=== PATIENT | female | born 1990 | race Caucasian/White ===

== ENCOUNTER 2021-02-05 00:12 | Emergency (ER) | payer OTHER ==
[~2021-02-05] VITALS: Ht 172.7 cm; Wt 104.3 kg
[2021-02-05] MEDS ORDERED: ACETAMINOPHEN 325 MG TAB PO ONE (01:45)
[2021-02-05 01:54] LABS: Basophils # (auto) 0 10 ^3/uL (0-0.2); Basophils % (auto) 0.2 % (0.0-2.0); Eosinophils # (auto) 0 10 ^3/uL (0-0.8); Eosinophils % (auto) 0.1 % (0.0-7.0); Hematocrit 39.2 % (36.0-46.0); Hemoglobin 13.5 g/dL (12.2-16.2); Lymphocytes # (auto) 1.2 10 ^3/uL (0.4-5.4); Lymphocytes % (auto) 7.5 % (10.0-50.0); Mean Corpuscular Hgb Conc. 34.6 g/dL (32.0-36.0); Mean Corpuscular Volume 81.1 fL (80.0-100.0); Monocytes # (auto) 1.3 10 ^3/uL (0-1.3); Monocytes % (auto) 7.8 % (0.0-12.0); Neutrophils # (auto) 13.8 10 ^3/uL (1.6-8.6); Neutrophils % (auto) 84.4 % (37.0-80.0); Nucleated Red Blood Cells % 0.1 %; Red Blood Cells 4.83 10^6/uL (4.0-5.20); Red Cell Distribution Width 16.9 % (11.8-14.3); White Blood Cell 16.3 10^3/uL (4.4-10.8)
[2021-02-05 02:27] LABS: Potassium 3.6 mmol/L (3.5-5.1)
[2021-02-05 02:28] VITALS: BP 101/77
[2021-02-05 02:34] LABS: Albumin 3.7 g/dL (3.4-5.0); Calcium 8.2 mg/dL (8.5-10.1)
[2021-02-05 02:37] LABS: Bilirubin, Total 0.4 mg/dL (0.2-1.0); Total Protein 7.7 g/dL (6.4-8.2)
== END 2021-02-05 07:35 | disposition home or self-care (01) ==
LOC: EDBD 00:12 → ER 00:12
DX: R51.9 Headache, unspecified (principal); M79.602 Pain in left arm
CPT/HCPCS: 36415; 76642; 80053; 85025; 93971

== ENCOUNTER 2025-04-21 20:58 | Emergency (ER) | payer OTHER ==
[~2025-04-21] VITALS: Ht 172.7 cm; Wt 96.3 kg
[2025-04-21 22:14] VITALS: PULSE 92; RESP 16; O2SAT 97
--- NOTE | 2025-04-21 22:30 | DVH ---
CLINICAL HISTORY: headache TECHNIQUE: Helical scanning was performed of the head from the skull base to the vertex. Multiplanar reconstructions were performed. This exam was performed according to our departmental dose optimizat ion program. Up-to-date CT equipment and radiation dose reduction techniques are utilized as appropri ate. CTDI 57 DLP 940 COMPARISON: None FINDINGS: There is no evidence for acute intracranial hemorrhage, acute ischemic changes, mass, mass effect, or extra-axial fluid collection. There is no hydrocephalus or midline shift. There is no effacement of the cerebral sulci and basal subarachnoid cisterns. The stewart-white matter differentiation is well jez ntained. The imaged paranasal sinuses are clear. IMPRESSION: NO ACUTE INTRACRANIAL ABNORMALITY SEEN.
[2025-04-22 00:10] VITALS: BP 128/85; PULSE 92; RESP 18; TEMP 98.5; O2SAT 98
--- NOTE | 2025-04-22 00:14 | ED.PDOC ---
HPI (NEURO) HPI Comments 34-YEAR-OLD FEMALE PRESENTS TO ER WITH COMPLAINTS OF HEADACHE X4 HOURS. PATIENT WITH PMH SIGNIFICANT FOR MIGRAINES REPORTS SHE STARTED EXPERIENCING 9/10 FRONTAL HEADACHE WITH ASSOCIATED PHOTOPHOBIA AND TWO EPISODES OF NAUSEA/VOMITING 4 HOURS PRIOR TO ARRIVAL TO ER. STATES SHE DID TAKE EXCEDRIN AND TOPIRAMATE PRIOR TO ARRIVAL TO ER WITH SOME RELIEF. PATIENT PRESENTS TO ER AMBULATORY ON ARRIVAL, ALERT ORIENTED X4, WITH STEADY GAIT, IN MILD DISTRESS AND NOTES SHE CURRENTLY IS ON DAY 9 OF CLINDAMYCIN ANTIBIOTICS FOR A BILATERAL EAR INFECTION. DENIES FEVER, DIZZINESS, HEAD INJURY, NECK PAIN, VISION CHANGES OR ANY FURTHER SYMPTOMS/COMPLAINTS Chief Complaint: Headache Time Seen by MD: 21:13 Primary Care Provider: UNKNOWN Reviewed Notes: Nurses Notes, Medications, Allergies Information Source: Patient Mode of Arrival: Ambulatory Past Medical History PAST MEDICAL HISTORY: Depression Past Medical History (Other): MIGRAINES Surgical History: Family History Family History: Unknown Social History Smoker: Non-Smoker Alcohol: Denies ETOH Use Drugs: Denies Drug Use Lives In: Home Constitutional: denies: chills, diaphoresis, fatigue, fever, malaise, sweats, weakness, others EENTM: reports: others ( STATED IN HPI) Respiratory: denies: cough, hemoptysis, orthopnea, SOB at rest, shortness of breath, SOB with excertion, stridor, wheezing, others Cardiovascular: denies: chest pain, dizzy spells, diaphoresis, Dyspnea on exertion, edema, irregular heart beat, left arm pain, lightheadedness, palpitations, PND, syncope, others Gastrointestinal: reports: others ( STATED IN HPI) Genitourinary: denies: abnormal vagina bleeding, burning, dyspareunia, dysuria, flank pain, frequency, hematuria, incontinence, pain, , vagina discharge, urgency, others Neurological: reports: others ( STATED IN HPI) Musculoskeletal: denies: back pain, gout, joint pain, joint swelling, muscle pain, muscle stiffness, neck pain, others Integumetry: denies: bruises, change in color, change in hair/nails, dryness, laceration, lesions, lumps, rash, wounds, others Allergic/Immunocompromised: denies: Difficulty Healing, Frequent Infections, Hives, Itching, others Hematologic/Lymphatic: denies: anemia, blood clots, easy bleeding, easy bruising, swollen glands, others Endocrine: denies: excessive hunger, excessive sweating, excessive thirst, excessive urination, flushing, intolerance to cold, intolerance to heat, unexplained weight gain, unexplained weight loss, others Psychiatric: denies: anxiety, bipolar disorder, depression, hopeless, panic disorder, schizophrenia, sleepless, suicidal, others Physical Exam General Appearance: Mild Distress, Obese HEENT: Normal ENT Inspection, PERRL/EOMI, Pharynx Normal, TMs Normal Neck: Full Range of Motion, Non-Tender, Normal Respiratory: Chest Non-Tender, Lungs Clear, No Accessory Muscle Use, No Respiratory Distress, Normal Breath Sounds Cardiovascular: No Murmur, No Gallop, Regular Rate/Rhythm Breast Exam: Deferred Gastrointestinal: NOT DONE Genitalia: Deferred Pelvic: Deferred Rectal: Deferred Extremities: Normal capillary refill, Normal range of motion Neurologic: Alert, setup technician II-XII nml as Tested, No Motor Deficits, No Sensory Deficits Cerebellar Function: Normal Reflexes: Normal Skin: Dry, Normal Color, Warm Lymphatic: No Adenopathy Was a procedure done? Was a procedure done?: No Sedation Sedation?: No Differential Diagnosis (SZ) Headache: Cluster, Subarachnoid Hemorrhage, Subdural Hemorrhage, Mass Lesion X-Ray, Labs, Meds, VS Vital Signs Date Time Temp Pulse Resp B/P (MAP) Pulse Ox O2 Delivery O2 Flow Rate FiO2 04/22/25 00:10 98.5 92 18 128/85 (99) 98 98.5 04/21/25 22:14 92 16 97 Room Air* 0 21 04/21/25 21:03 97.7 90 18 137/96 98 97.7 PATIENT: ABIEL VELÁZQUEZHACCT: [id number]: [id number] : 1990 LOC: ER ROOM / BED: / AGE / SEX: 34 / F ADM STATUS: REG ER SERVICE 58 ORDERING PHYSICIAN: FARIBA DE LA O PROCEDURE(s): HWOCT - HEAD WITHOUT CONTRAST REASON: headache ORDER NUMBER(s): [id number], ACCESSION NUMBER(s): [id number] CLINICAL HISTORY: headache TECHNIQUE: Helical scanning was performed of the head from the skull base to the vertex. Multiplanar reconstructions were performed. This exam was performed according to our departmental dose optimization program. Up-to-date CT equipment and radiation dose reduction techniques are utilized as appropriate. CTDI 57 DLP 940 COMPARISON: None FINDINGS: There is no evidence for acute intracranial hemorrhage, acute ischemic changes, mass, mass effect, or extra-axial fluid collection. There is no hydrocephalus or midline shift. There is no effacement of the cerebral sulci and basal subarachnoid cisterns. The stewart-white matter differentiation is well maintained. The imaged paranasal sinuses are clear. IMPRESSION: NO ACUTE INTRACRANIAL ABNORMALITY SEEN. ATED BY: LAQUITA BUENROSTRO MD DICTATED DATE/TIME: 04/21/252227 SIGNED BY: LAQUITA BUENROSTRO MD SIGNED DATE/TIME: 04/21/252227 CC: CT HEAD WITHOUT CONTRAST REVIEWED PATIENT HAD IMPROVEMENT IN SYMPTOMS AND IN NO DISTRESS PRIOR TO DISCHARGE ADVISED TO CONTINUE MEDICATIONS PRESCRIBED ADVISED TO FOLLOW UP WITH PCP IN 1-2 DAYS PATIENT VERBALIZED UNDERSTANDING AND AGREEABLE WITH CURRENT PLAN OF CARE ADVISED TO RETURN TO ER IMMEDIATELY IF SYMPTOMS WORSEN Images Reviewed?: Images reviewed and evaluated by me Time of 1ST Reevaluation: 23:40 Reevaluation 1ST: N/A Patient Education/Counseling: Diagnosis, Treatment, Prognosis, Need For Follow Up Family Education/Counseling: No Family Present Departure 1 Departure Time of Disposition: 00:14 Impression: Primary Impression: Tension headache Disposition: 01 HOME / SELF CARE / HOMELESS Condition: Stable Discharged With: Friend Critical Care Note Critical Care Time?: No Stability Stability form required: No Heart Score Heart Score: Heart Score Response (Comments) Value History N/A 0 EKG N/A 0 Age N/A 0 Risk Factors N/A 0 Troponin N/A 0 Total 0 FARIBA DE LA O Apr 22, 2025 00:14
== END 2025-04-22 00:28 | disposition home or self-care (01) ==
LOC: ER 20:58
DX: G44.209 Tension-type headache, unspecified, not intractable (principal); Z98.890 Other specified postprocedural states
CPT/HCPCS: 70450